=== PATIENT | male | born 1950 | race Caucasian/White ===

== ENCOUNTER → 2016-09-13 | Outpatient (CLI) | payer OTHER ==
[2016-09-13 11:50] LABS: CREATININE 0.9 mg/dL (0.7-1.3)
== END ==
LOC: CAT 10:41
PROVIDERS: Ophthalmology
DX: D48.7 Neoplasm of uncertain behavior of other specified sites (principal); H05.89 Other disorders of orbit

== ENCOUNTER 2016-10-14 05:10 | Day surgery (SDC) | payer OTHER ==
[~2016-10-14] VITALS: Ht 185.4 cm; Wt 104.3 kg
--- NOTE | ~2016-10-14 | S ---
[facility] [address] SURGICAL PATH RPT PROCEDURE Name: INDIGO LANE Room #: DEP [facility] M.R.#: [id number] Admission: 10/14/16 Date of : 50 Discharge: 10/14/16 Report #: [id number] Path Case #: [id number] PATHOLOGY REPORT COLLECTION DATE: 10/14/2016 RECEIVED DATE: 10/14/2016 SUBMITTING PHYS: Dr. Finn Munguia OTHER PHYS: SPECIMEN(S) RECEIVED: A.Left orbital mass x2 pieces B.Left orbital foreign body * * * * * * * * * * * * FINAL DIAGNOSIS: A. Eye, left orbital mass x 2, biopsy: - Compatible with a pyogenic granuloma with focal foreign body-type reaction (please see comment). - Overlying epithelium negative for dysplasia. B. Foreign body, left orbital foreign body, removal: - 1.0, and 0.9 cm rubbery material, consistent with a foreign body (gross exam only). COMMENT: Examination shows a central space with focal polarizable material surrounded by marked acute and chronic inflammation as well as focal granulomatous inflammation. The overlying epithelium shows reactive changes and is negative for dysplasia. Part A was co-reviewed by Dr. Rachelle Fonseca. (IUV:mgr; 10/18/2016) PATHOLOGIST: Bere Harper M.D. REPORT ELECTRONICALLY SIGNED BY: Bere Harper M.D. DATE/TIME: 10/18/2016 18:53 * * * * * * * * * * * * GROSS PATHOLOGY: A. The specimen is received in formalin, labeled "Indigo Lane, left orbital mass 2" are two gomez-flood, rubbery, congested tissue fragments measuring 0.8 x 0.4 x 0.2 cm in aggregate. No distinct abnormalities are noted. The soft tissue is entirely submitted in cassette A1. B. The specimen is received in formalin, labeled "Indigo [address], left orbital foreign body" are two gomez yellow to flood-white, rubbery fragments of or material measuring 1.0 x 0.2 x 0.2 cm and 0.9 x 0.3 x 0.2 cm. Nothing is imprinted on the outer surface. No focal [address] [address] SURGICAL PATH RPT PROCEDURE Name: INDIGO LANE Room #: DEP [facility] M.R.#: [id number] Admission: 10/14/16 Date of : 50 Discharge: 10/14/16 Report #: [id number] Path Case #: [id number] abnormalities are noted. No sections are taken. ([facility]; 10/15/2016) CLINICAL HISTORY: Left eye lesion INITIAL CPT CODE(S): B; 78329, 56253 Professional services performed by [facility] at [address] , [place] [address] Technical services performed by [facility] at [address] [place] [address], [facility] [address], [place] [address]. [facility] [address] [address] PHONE: [phone] DIRECTOR: Samuel Fernandes M.D. * * * END OF REPORT * * *
--- NOTE | ~2016-10-14 | O ---
[facility] [place] [address] OPERATIVE REPORT Name: INDIGO JOSHI Room #: DEP [facility]..#: [id number] Admission: 10/14/16 Attend Phys: Finn Munguia MD Discharge: 10/14/16 Date of : 50 Report #: [id number] THIS REPORT FOR: //name// CC: Dr. Leroy Potts [facility] physician/PCP Finn Munguia DATE OF SERVICE: 10/14/2016 PREOPERATIVE DIAGNOSES: Left conjunctival mass with left orbital foreign body. POSTOPERATIVE DIAGNOSES: Left conjunctival mass with left orbital foreign body. PROCEDURE: 1. Excision of lesion of conjunctiva with conjunctivoplasty repair of defect. 2. Transconjunctival orbitotomy. SURGEON: Finn Munguia MD LAND PLANNER: None. ANESTHESIA: General. COMPLICATIONS: None. INDICATIONS FOR SURGERY: This 66-year-old gentleman has a conjunctival mass in his medial left eye that appears to most likely be a pyogenic granuloma. This has been unresponsive to medical therapy to date. Additionally, he has an exposed device that appears to be a polyfilament suture superonasally deep in the fornix from prior retinal surgery. It is thought that the 2 separate things likely relate to each other in some manner; however, they are by several millimeters. An excision of the conjunctival lesion with repair of that defect along with transconjunctival orbitotomy are planned. Informed consent was obtained to include, but not limited to the potential risk for loss of vision, bleeding, infection, failure to improve the problem, and the potential need for further surgery or treatment. DESCRIPTION OF PROCEDURE: The patient was taken to the operating room where general anesthesia was administered. The medial and superior left orbit was then anesthetized with Xylocaine with epinephrine mixed with Marcaine and Wydase. The patient was subsequently prepped and draped in the usual sterile fashion. A moistened sponge was placed on the right eye. Attention was first turned to the conjunctival lesion. It was outlined and subsequently incisions made around the base of the lesion 360 degrees. Minimal pinpoint cautery was used to control hemostasis throughout the dissection. The lesion was excised in his macroscopic entirety. The underlying conjunctiva was then sufficiently undermined to allow a flap repair to be accomplished. The flap was advanced and secured with interrupted closure. The right upper lid was then distracted with a Desmarres retractor. A mucoid discharge could be seen superonasally. The globe was then infraducted and the mucous tracked back into the anterior orbit. Here was visible a polyfilament suture that appeared to most likely had been around an encircling element at some point in time. The suture that was out was not tied and was exposed in the fornix. It was grasped and drawn anteriorly. The dissection was undertaken [address] [address] OPERATIVE REPORT Name: INDIGO JOSHI Room #: DEP [facility] Shauna#: [id number] Admission: 10/14/16 Attend Phys: Finn Munguia MD Discharge: 10/14/16 Date of : 50 Report #: [id number] around its base. It was drawn back to the scleral bed, but it was not cut out of the sclerae. This was thought to potentially be harmful to his retina to have the sponge displaced. It was amputated at its base. The superior rectus muscle was isolated during the dissection and was left lateral to the device. The superior oblique muscle was not specifically visualized. The wound was then further explored and an additional exposed suture was found superotemporally. It was drawn anteriorly as the dissection was made in the conjunctiva and this dissection taken back to the base of the sclera. This particular suture had completely come out of the sclerae and it was able to be dissected free without disrupting the retinal encircling element, the lateral rectus muscle or the superior rectus muscle. Hemostasis was then re-achieved. Maxitrol ointment was then placed on the eye and the patient subsequently transported to the recovery area having tolerated the procedure well with no anesthetic or operative complications being noted. <ELECTRONICALLY SIGNED> By: Finn Munguia MD 10/18/16 0616 [id number] Finn Munguia MD /nt
[~2016-10-14 05:10] MED LIST: LEVOTHYROXINE 0.1 MG PO; NEXIUM40 MG PO
== END 2016-10-14 14:45 | disposition home or self-care (01) ==
LOC: OR 05:10 → TBA 05:10 → OR 11:08
DX: L98.0 Pyogenic granuloma (principal)
CPT/HCPCS: 50010; 50101; 50386; 50398; 51636; 62110; 62900; 70005